=== PATIENT | female | born 1985 | race American Indian/Alaskan Native ===

== ENCOUNTER 2021-11-25 10:52 | Emergency (ER) | payer BC ==
[2021-11-25] MEDS ORDERED: MAGNESIUM SULFATE 2 GM/50 ML BAG IV ONE (11:08)
[2021-11-25] MEDS ORDERED: IPRATROPIUM 0.02% NEBU 2.5 ML IH ONE (11:08)
[2021-11-25] MEDS ORDERED: ALBUTEROL 2.5 MG/3 ML NEBU IH ONE (11:08)
--- NOTE | 2021-11-25 11:11 | Emergency Department Report ---
ED Asthma HPI - General Chief Complaint: Adult Asthma Stated Complaint: ASTHMA Time Seen by Provider: 11/25/21 11:01 Source: patient, EMS Mode of arrival: Stretcher Limitations: No Limitations - History of Present Illness Initial Comments: 36-year-old female the past medical history of asthma without previous intubations presents to the hospital with complaints of wheezing and shortness of breath secondary to asthma exacerbation. For last 3 days patient has had increased wheezing and cough productive of clear sputum with chest tightness. She ran out of her bronchodilators and Symbicort. She tried to fill her medications at the pharmacy today however, she was told she needs a prescription to receive her albuterol nebulizer medication and that the pharmacy had run out of Symbicort. She presented via EMS reports a room air saturation 91% upon their arrival to the scene. She was treated with albuterol 7.5 mg and Decadron 10 mg with improvement however, patient has persistent wheezing and chest tightness. No reports of fever - Related Data Previous Rx's Medication Instructions Recorded Last Taken Type ALBUTEROL NEB's [Proventil 0.083% 2.5 mg IH TID PRN #30 neb 11/25/21 Unknown Rx NEBS] Albuterol Sulfate [Proair 90 mcg IH Q4HR PRN #1 inhalation 11/25/21 Unknown Rx Respiclick] Budesonide/Formoterol Fumarate 2 puff IH BID #1 inhalation 11/25/21 Unknown Rx [Symbicort 160-4.5 Mcg Inhaler] predniSONE [Deltasone] 40 mg PO QDAY 5 Days #10 tab 11/25/21 Unknown Rx Allergies Allergy/AdvReac Type Severity Reaction Status Date / Time No Known Allergies Allergy Verified 11/25/21 10:56 ED Review of Systems ROS: Stated complaint: ASTHMA Other details as noted in HPI Comment: All other systems reviewed and negative ED Past Medical Hx - Medications Home Medications: Home Medications Medication Instructions Recorded Confirmed Last Taken Type ALBUTEROL NEB's [Proventil 0.083% 2.5 mg IH TID PRN #30 neb 11/25/21 Unknown Rx NEBS] Albuterol Sulfate [Proair 90 mcg IH Q4HR PRN #1 inhalation 11/25/21 Unknown Rx Respiclick] Budesonide/Formoterol Fumarate 2 puff IH BID #1 inhalation 11/25/21 Unknown Rx [Symbicort 160-4.5 Mcg Inhaler] predniSONE [Deltasone] 40 mg PO QDAY 5 Days #10 tab 11/25/21 Unknown Rx ED Physical Exam - General Limitations: No Limitations - Other Other exam information: General: No acute distress Head: Atraumatic Eyes: normal appearance ENT: Moist mucous membranes Neck: Normal appearance, no midline tenderness Chest: Mild tachypnea, wheezing, fair air movement CV: Regular rate and rhythm Abdomen: Soft, normal bowel sounds, nontender, nondistended, no rebound or guarding Back: Normal inspection Extremity: Normal inspection, full range of motion, no calf tenderness or leg edema Neuro: Alert O x 3, no facial asymmetry, speech clear, no gross motor sensory deficit Psych: Appropriate behavior Skin: No rash ED Course Vital Signs 11/25/21 11/25/21 11/25/21 10:53 11:00 11:24 Temperature 97.3 F L 98.9 F Pulse Rate 90 104 H Pulse Rate [ 82 Anterior Bilateral Throughout] Respiratory 23 Rate Respiratory 18 Rate [Anterior Bilateral Throughout] Blood Pressure 126/60 Blood Pressure 122/84 [Left] O2 Sat by Pulse 97 90 Oximetry 11/25/21 11/25/21 11/25/21 11:36 12:19 12:31 Temperature Pulse Rate 105 H 104 H 107 H Pulse Rate [ Anterior Bilateral Throughout] Respiratory 24 23 29 H Rate Respiratory Rate [Anterior Bilateral Throughout] Blood Pressure Blood Pressure 104/79 [Left] O2 Sat by Pulse 94 94 95 Oximetry 11/25/21 11/25/21 11/25/21 12:45 13:01 13:15 Temperature Pulse Rate 116 H 126 H 110 H Pulse Rate [ Anterior Bilateral Throughout] Respiratory 21 25 H 24 Rate Respiratory Rate [Anterior Bilateral Throughout] Blood Pressure 88/70 152/93 146/87 Blood Pressure [Left] O2 Sat by Pulse 94 96 96 Oximetry 11/25/21 11/25/21 13:31 13:45 Temperature Pulse Rate 114 H 119 H Pulse Rate [ Anterior Bilateral Throughout] Respiratory 22 26 H Rate Respiratory Rate [Anterior Bilateral Throughout] Blood Pressure 146/87 138/90 Blood Pressure [Left] O2 Sat by Pulse 93 Oximetry ED Medical Decision Making - Lab Data Result diagrams: 11/25/21 12:39 11/25/21 12:39 Lab Results 11/25/21 11/25/21 11/25/21 Range/Units 12:39 12:39 12:39 WBC 11.6 H (4.5-11.0) K/mm3 RBC 4.36 (3.65-5.03) M/mm3 Hgb 14.3 (10.1-14.3) gm/dl Hct 42.2 (30.3-42.9) % MCV 97 (79-97) fl MCH 33 H (28-32) pg MCHC 34 (30-34) % RDW 12.6 L (13.2-15.2) % Plt Count 151 (140-440) K/mm3 Seg Neutrophils % Stock Shaper Sodium 135 L (137-145) mmol/L Potassium 4.1 (3.6-5.0) mmol/L Chloride 102.2 (98-107) mmol/L Carbon Dioxide 19 L (22-30) mmol/L Anion Gap 18 mmol/L BUN 13 (7-17) mg/dL Creatinine 0.8 (0.6-1.2) mg/dL Estimated GFR > 60 ml/min BUN/Creatinine Ratio 16 % Glucose 129 H (65-100) mg/dL Calcium 9.0 (8.4-10.2) mg/dL Troponin T (0.00-0.029) ng/mL HCG, Quant < 2 (0-4) mIU/mL 11/25/21 Range/Units 12:39 WBC (4.5-11.0) K/mm3 RBC (3.65-5.03) M/mm3 Hgb (10.1-14.3) gm/dl Hct (30.3-42.9) % MCV (79-97) fl MCH (28-32) pg MCHC (30-34) % RDW (13.2-15.2) % Plt Count (140-440) K/mm3 Seg Neutrophils % Sodium (137-145) mmol/L Potassium (3.6-5.0) mmol/L Chloride (98-107) mmol/L Carbon Dioxide (22-30) mmol/L Anion Gap mmol/L BUN (7-17) mg/dL Creatinine (0.6-1.2) mg/dL Estimated GFR ml/min BUN/Creatinine Ratio % Glucose (65-100) mg/dL Calcium (8.4-10.2) mg/dL Troponin T < 0.010 (0.00-0.029) ng/mL HCG, Quant (0-4) mIU/mL - EKG Data -: EKG Interpreted by Me (Right atrial enlargement) EKG shows normal: sinus rhythm, ST-T waves (No ST elevation) Rate: tachycardia (113) - Radiology Data Radiology results: report reviewed CHEST 1 VIEW INDICATION: sob, wheezing, asthma. COMPARISON: None FINDINGS: Support devices: None. Heart: Within normal limits. Lungs/Pleura: The lungs are mildly hyperinflated. No evidence for infiltrate, pleural effusion or pneumothorax. Additional findings: None. IMPRESSION: Hyperinflated lungs. - Medical Decision Making 36-year female presents to the hospital with acute exacerbation asthma after running out of her medication. After meds in route and meds in the ED patient reports feeling better. Room air saturation ranges 92 to 94%. Patient still has persistent wheezing but insists that she is ready to go and declines additio nal treatments at this time. She denies feeling significantly short of breath with ambulating in the ED. Prescription for med refills will be provided - Differential Diagnosis Asthma, bronchitis, pneumonia, CHF, PE Critical Care Time: No Critical care attestation.: If time is entered above; I have spent that time in minutes in the direct care of this critically ill patient, excluding procedure time. ED Disposition Clinical Impression: Acute asthma exacerbation Disposition: 01 HOME / SELF CARE / HOMELESS Is pt being admited?: No Does the pt Need Aspirin: No Condition: Stable Instructions: Asthma, Adult Additional Instructions: Take the medication as prescribed. Follow-up with your doctor or doctor/clinic provided. Return if symptoms worsen as indicated by your discharge instructions. Prescriptions: predniSONE [Deltasone] 40 mg PO QDAY 5 Days #10 tab Albuterol Sulfate [Proair Respiclick] 90 mcg IH Q4HR PRN #1 inhalation PRN Reason: Wheezing ALBUTEROL NEB's [Proventil 0.083% NEBS] 2.5 mg IH TID PRN #30 neb PRN Reason: Wheezing Budesonide/Formoterol Fumarate [Symbicort 160-4.5 Mcg Inhaler] 2 puff IH BID #1 inhalation Referrals: PRIMARY CARE, [Primary Care Provider] - 3-5 Days TODD SAINZ MD [Staff Physician] - 3-5 Days (lung specialist) Time of Disposition: 14:19
[2021-11-25 13:20] LABS: Hematocrit 42.2 % (30.3-42.9); Hemoglobin 14.3 gm/dl (10.1-14.3); Mean Corpuscular HGB Conc 34 % (30-34); Mean Corpuscular Volume 97 fl (79-97); Platelet Count 151 K/mm3 (140-440); Red Blood Count 4.36 M/mm3 (3.65-5.03); Red Cell Distribution Width 12.6 % (13.2-15.2)
[2021-11-25 13:24] LABS: BUN/Creatinine Ratio 16; Blood Urea Nitrogen 13 mg/dL (7-17); Hemolysis Index 5
[2021-11-25 14:01] VITALS: BP 138/90
--- NOTE | 2021-11-25 14:07 | XRay Report ---
CHEST 1 VIEW INDICATION: sob, wheezing, asthma. COMPARISON: None FINDINGS: Support devices: None. Heart: Within normal limits. Lungs/Pleura: The lungs are mildly hyperinflated. No evidence for infiltrate, pleural effusion or pne umothorax. Additional findings: None. IMPRESSION: Hyperinflated lungs. Signer Name: Wil Pyle Jr, MD Signed: 11/25/2021 2:02 PM Workstation Name: [id number]
[2021-11-25 15:09] LABS: Basophils % (Manual) 0 % (0.0-1.8); Eosinophils % (Manual) 0 % (0.0-4.3); Total Cells Counted 100
[2021-11-25 15:10] LABS: Giant Platelets Few; Platelet Estimate Consistent w Auto; RBC Morphology Normal
--- NOTE | 2021-11-26 17:57 | Electrocardiograph Report ---
[facility] Test Date: 2021-11-25 Test Time: 11:19:25 Pat Name: VANDANA MONTEIRO Department: Room: Gender: F Rn Picu: JORGE A : 1985 Requested By: MIMI BIRD Order Number: [id number] Reading MD: Pearl Watson Measurements Intervals [place] Rate: 86 P: 79 MI: 115 QRS: 56 QRSD: 67 T: 1 QT: 378 QTc: 453 Interpretive Statements Incomplete analysis due to missing data in precordial lead(s) Sinus rhythm Right atrial enlargement Nonspecific ST segment abnormality No previous ECG available for comparison Electronically Signed On 11-26-2021 17:57:21 EDT by Pearl Watson
== END 2021-11-25 14:29 | disposition home or self-care (01) ==
LOC: ED 10:52
DX: J45.901 Unspecified asthma with (acute) exacerbation (principal)
CPT/HCPCS: 36415; 71045; 80048; 84484; 84702; 85007; 85025; 93005; 94640; 96365; 99284; J3475; 94644